=== PATIENT | male | born 2000 | race African-American/Black ===

== ENCOUNTER 2020-03-19 09:16 | Emergency (ER) | payer OTHER ==
[~2020-03-19 09:16] MED LIST: LAXATIVE SUPPO1 EACH PR; PROAIR HFA8.5 GM INH; ZOFRAN4 M1 PO
[2020-03-19] MEDS ORDERED: MOBIC7.5 MG PO (09:37)
[2020-03-19] MEDS ORDERED: VENTOLIN HFA IN18 GM INH (11:04)
== END 2020-03-19 11:15 | disposition home or self-care (01) ==
LOC: FER 09:16
DX: U07.1 COVID-19 (principal); J06.9 Acute upper respiratory infection, unspecified; J45.909 Unspecified asthma, uncomplicated
CPT/HCPCS: 99283